=== PATIENT | female | born 1980 | race Caucasian/White ===

== ENCOUNTER 2017-04-20 09:36 | Day surgery (SDC) | payer OTHER ==
[~2017-04-20 09:36] MED LIST: LIDOCAINE HCL 1% MPF SOL ONE; PROPOFOL 500 MG/50 ML EMU IV ONE
[2017-04-20 11:37] VITALS: TEMP 98.2
[2017-04-20 12:06] VITALS: BP 119/71; PULSE 65; RESP 20; O2SAT 97
== END 2017-04-20 12:13 | disposition home or self-care (01) ==
LOC: SURG 09:36
PROVIDERS: ATTEND Internal Medicine Gastroenterology
DX: R13.10 Dysphagia, unspecified (principal); R07.89 Other chest pain; Q39.8 Other congenital malformations of esophagus; K22.2 Esophageal obstruction; K44.9 Diaphragmatic hernia without obstruction or gangrene; K22.10 Ulcer of esophagus without bleeding
CPT/HCPCS: 43239; J2001; J2704

== ENCOUNTER 2017-06-22 08:24 | Day surgery (SDC) | payer OTHER ==
[2017-06-22] MEDS ORDERED: PROPOFOL 500 MG/50 ML EMU IV ONE (09:54)
[2017-06-22 10:42] VITALS: TEMP 97.9
[2017-06-22 11:07] VITALS: RESP 20; O2SAT 98
[2017-06-22 11:16] VITALS: BP 116/77; PULSE 69
== END 2017-06-22 11:44 | disposition home or self-care (01) ==
LOC: SURG 08:24
PROVIDERS: ATTEND Internal Medicine Gastroenterology
DX: R13.10 Dysphagia, unspecified (principal); Z87.19 Personal history of other diseases of the digestive system; K22.2 Esophageal obstruction; K44.9 Diaphragmatic hernia without obstruction or gangrene; K29.80 Duodenitis without bleeding
CPT/HCPCS: J2001; J2704